=== PATIENT | female | born 2000 | race Caucasian/White ===

== ENCOUNTER 2022-02-22 11:34 | Emergency (ER) | payer OTHER ==
[2022-02-22] MEDS ORDERED: TORAdol 30 mg Injection IM ONE (12:28)
[2022-02-22] MEDS ORDERED: TORAdol 30 mg Injection ONE (12:35)
--- NOTE | 2022-02-22 12:55 | ERPHSYRPT ---
- History of Present Illness Time Seen by Provider: 02/22/22 12:51 Source: patient Exam Limitations: no limitations Patient Subjective Stated Complaint: lower midline back pain that radiates to both sides since standing up after stretching last night. Triage Nursing Assessment: Presents to ED ambulatory to bed 9. Changed into gown and placed on monitor. All VSS. A & Ox3, answers questions appropriately. Skin PWD. C/o lower midline back pain that radiates to both sides of lower back. States was standing up from stretching last night when pain began. Pain is constant, throbbing, sharp. Took tylenol at 1115. Denies hx of previous back injury. Denies hematuria or any changes in urination. Pt grasping at site. Physician History: 21-year-old female presents to our emergency department for evaluation of back pain. Patient states she was stretching her upper body in a sitting position. When patient stood up she felt an acute onset pain low back midline. Mild ache across her low back. No blunt trauma. Patient works as an assembly line repetitive motion activity. Pain is localized. No radiation. No recent back procedure no fever. No change in bowel bladder function. No saddle anesthesia. Symptoms are mild to moderate in intensity. Movement palpation reproduce symptoms. Pain improved with rest. Patient is otherwise healthy. No associated chest pain or shortness of breath. Patient voices no other complaints or concerns at this time. Portions of this note were created with voice recognition technology. There may be grammatical, spelling, punctuation or sound alike errors Timing/Duration: yesterday Method of Injury: other (Stretching) Quality: dull, aching Back Pain Location: lumbar spine Severity of Pain-Max: moderate Severity of Pain-Current: mild Modifying Factors: Improves With: movement, other (Palpation reproduces pain.) Associated Symptoms: denies symptoms Previous symptoms: no prior history Allergies/Adverse Reactions: Penicillins Allergy (Verified 02/22/22 12:18) states unknown reaction Home Medications: No Reportable Medications [No Reported Medications] 02/22/22 [History] Hx Tetanus, Diphtheria Vaccination/Date Given: No Hx Influenza Vaccination/Date Given: No Travel Risk - International Travel Have you traveled outside of the country in past 3 weeks: No - Coronavirus Screening Are you exhibiting any of the following symptoms?: No Close contact with a COVID-19 positive Pt in past 14-21 Days: No - Vaccine Status Have you recieved a Covid-19 vaccination: No - Review of Systems Constitutional: No Symptoms, No Fever, No Chills Eyes: No Symptoms Ears, Nose, & Throat: No Symptoms Respiratory: No Symptoms, No Cough, No Dyspnea Cardiac: No Symptoms, No Chest Pain, No Edema, No Syncope Abdominal/Gastrointestinal: No Symptoms, No Abdominal Pain, No Nausea, No Vomiting, No Diarrhea Genitourinary Symptoms: No Symptoms, No Dysuria Musculoskeletal: No Symptoms, No Back Pain, No Neck Pain Skin: No Symptoms, No Rash Neurological: No Symptoms, No Dizziness, No Focal Weakness, No Sensory Changes Psychological: No Symptoms Endocrine: No Symptoms Hematologic/Lymphatic: No Symptoms Immunological/Allergic: No Symptoms All Other Systems: Reviewed and Negative - Past Medical History Pertinent Past Medical History: Yes - Past Surgical History Past Surgical History: Yes Other Surgical History: fatty nodule removed from throat - Social History Smoking Status: Never smoker Drug Use: none Patient Lives Alone: No - Female History Hx Last Menstrual Period: Jan 21 Hx Now: No - Nursing Vital Signs Nursing Vital Signs: Initial Vital Signs Temperature 97.2 F 02/22/22 11:38 Pulse Rate 105 H 02/22/22 11:38 Respiratory Rate 16 02/22/22 11:38 Blood Pressure 128/94 02/22/22 11:38 O2 Sat by Pulse Oximetry 100 02/22/22 11:38 Pain Scale Pain Intensity [] 6 Pain Intensity 4 - Physical Exam General Appearance: no apparent distress, alert Eye Exam: PERRL/EOMI, eyes nml inspection Ears, Nose, Throat Exam: normal ENT inspection, TMs normal, pharynx normal Neck Exam: normal inspection, non-tender, supple, full range of motion, No meningismus, No midline tenderness Respiratory Exam: normal breath sounds, lungs clear, airway intact, No respiratory distress Cardiovascular Exam: regular rate/rhythm, normal heart sounds, normal peripheral pulses Gastrointestinal Exam: soft, No tenderness, No mass Extremity Exam: normal inspection, normal range of motion, No calf tenderness, No pedal edema Neurologic Exam: alert, oriented x 3, cooperative, automatic engraver II-XII nml as tested, normal mood/affect, nml station & gait, sensation nml, No motor deficits Skin Exam: normal color, warm, dry, No rash Lymphatic Exam: No adenopathy SpO2 Interpretation: normal SpO2: 99 O2 Delivery: Room Air - Course Nursing assessment & vital signs reviewed: Yes - Radiology Exams L-Spine X-ray Interpretation: Teleradiologist Report (No fracture or dislocation. No soft tissue abnormalities. Negative back x-ray straightening of the lumbar lordosis likely secondary to lumbar paraspinal musculature spasm) Ordered Tests: Active Orders 24 hr Category Date Time Status LUMBAR LIMITED (2 OR 3 VIEWS) Stat Exams 02/22/22 12:28 Taken HCG,QUALITATIVE URINE Stat Lab 02/22/22 12:38 Completed UA W/RFX CULTURE Stat Lab 02/22/22 12:50 Completed Medication Summary Discontinued Medications Generic Name Dose Route Start Last Admin Trade Name Freq PRN Reason Stop Dose Admin Ketorolac Tromethamine 30 mg 02/22/22 12:28 02/22/22 12:43 Ketorolac Tromethamine 30 Mg/Ml Inj IM 02/22/22 12:29 30 mg STAT ONE Administration Ketorolac Tromethamine Confirm 02/22/22 12:35 Ketorolac Tromethamine 30 Mg/Ml Inj Administered 02/22/22 12:36 Dose 30 mg .ROUTE .RPM [employer]-MED ONE Lab/Rad Data: Laboratory Results 02/22/22 02/22/22 Range/Units 12:50 12:38 Urinalys Dipstick Clnc MAIN LAB Urine Color YELLOW (YELLOW) Urine Appearance CLEAR (CLEAR) Urine pH 6.0 (5-6) Ur Specific [place] 1.020 (1.005-1.025) POC Urine Protein Conf TRACE A (Negative) Urine Ketones NEGATIVE (NEGATIVE) Urine Nitrite NEGATIVE (NEGATIVE) Urine Bilirubin NEGATIVE (NEGATIVE) Urine Urobilinogen 0.2 (0-1) mg/dL Urine Leukocytes NEGATIVE (NEGATIVE) Urine WBC (Auto) 0-2 (0-5) /HPF Urine RBC (Auto) NONE (0-2) /HPF U Epithel Cells (Auto) NONE (FEW) /HPF Urine Bacteria (Auto) NONE (NEGATIVE) /HPF Urine RBC NEGATIVE (0-5) [place]/ul Urine Mucus (Auto) SLIGHT A (NEGATIVE) /HPF Ur Culture Indicated? NO Urine Glucose NEGATIVE (NEGATIVE) mg/dL Urine HCG, Qual NEGATIVE (Negative) - Progress Progress: improved Progress Note: Patient reassessed. Pain improved. UA negative. Patient not . X-ray lumbar spine shows straightening of the lumbar lordosis possibly secondary to muscle spasm. Otherwise no fracture dislocation. No soft tissue abnormalities. Patient is ready for discharge. No indication for further work-up at this time. Will discharge home. Patient agrees to follow-up with a primary care doctor within 48 hours for evaluation. Portions of this note were created with voice recognition technology. There may be grammatical, spelling, punctuation or sound alike errors 02/22/22 13:45 Counseled pt/family regarding: lab results, diagnosis, need for follow-up, rad results - Departure Departure Disposition: Home Clinical Impression: Lumbosacral strain, Lumbar paraspinal muscle spasm Condition: Stable Critical Care Time: No Referrals: KIKE LALA, MANDOLIN REPAIR PERSON [Primary Care Provider] - Follow up/PCP as directed Additional Instructions: Discharge/Care Plan MARIAH CRUZ was seen on 02/22/22 in the Emergency Room. The patient was counseled regarding Diagnosis,Lab results, Imaging studies, need for follow up and when to return to the Emergency Room. Prescriptions given: Discharge Note I have spoken with the patient and/or caregivers. I have explained the patient's condition, diagnosis and treatment plan based on the information available to me at this time. I have answered the patient's and/or caregiver's questions and addressed any concerns. The patient and/or caregivers have as good understanding of the patient's diagnosis, condition and treatment plan as can be expected at this point. The vital signs have been stable. The patient's condition is stable and appropriate for discharge from the emergency department. The patient will pursue further outpatient evaluation with the primary care physician or other designated or consulting physician as outlined in the discharge instructions. The patient and/or caregivers are agreeable to this plan of care and follow-up instructions have been explained in detail. The patient and/or caregivers have received these instruction. The patient/and or caregivers are aware that any significant change in condition or worsening of symptoms should prompt an immediate return to this or the closest emergency department or call 911.
[2022-02-22 13:06] LABS: Mucus SLIGHT /HPF (NEGATIVE); WBC 0-2 /HPF (0-5)
[2022-02-22 13:07] LABS: Appearance CLEAR (CLEAR); Bilirubin NEGATIVE (NEGATIVE); Dipstick done @ ? MAIN LAB; Glucose NEGATIVE (NEGATIVE); Ketones NEGATIVE (NEGATIVE); Nitrite NEGATIVE (NEGATIVE); Protein,Urine Dip TRACE (Negative); RBC NEGATIVE Ery/ul (0-5); Urine Cultured Indicated? NO; Urobilinogen 0.2 mg/dL (0-1)
[2022-02-22 13:40] VITALS: BP 112/68; PULSE 88
--- NOTE | 2022-02-22 13:43 | XRAY ---
Indication: Low back pain. No known injury. Comparison: None 3 view lumbar spine demonstrates 5 lumbar segments in normal alignment with minimal L5-S1 disc space narrowing. No other bony, articular, or soft tissue abnormalities.
[2022-02-22 13:47] VITALS: O2SAT 99
== END 2022-02-22 13:53 | disposition home or self-care (01) ==
LOC: ED 11:34
DX: S39.012A Strain of muscle, fascia and tendon of lower back, initial encounter (principal); X50.0XXA Overexertion from strenuous movement or load, initial encounter; M62.830 Muscle spasm of back; Z28.310 Unvaccinated for COVID-19
CPT/HCPCS: 72100; 81015; 81025; 96372; 99283; J1885